=== PATIENT | male | born 1960 | race Two or more races ===

== ENCOUNTER 2022-10-06 23:21 | Emergency (ER) | payer OTHER ==
[~2022-10-06] VITALS: Ht 162.6 cm; Wt 65.8 kg
[2022-10-06] MEDS ORDERED: TRAMADOL HCL E100 M1 (23:27)
[2022-10-06] MEDS ORDERED: NEURONTIN300 MG (23:28)
[2022-10-06] MEDS ORDERED: GLIPIZIDE XL2.5 MG (23:28)
== END 2022-10-07 01:29 | disposition home or self-care (01) ==
LOC: ER 23:21
DX: M13.80 Other specified arthritis, unspecified site (principal)
CPT/HCPCS: 96372; 99283; J1100; J1885